=== PATIENT | male | born 1965 | race Caucasian/White ===

== ENCOUNTER 2024-02-24 03:45 | Emergency (ER) | payer OTHER, SELFPAY ==
[2024-02-24] VITALS (7 sets, daily range): BP systolic 117–153; BP diastolic 90–117; BMI 38.1
--- NOTE | 2024-02-24 04:02 | ED.GENMED ---
History of Present Illness
<YNES Jha - Last Filed: 02/24/24 07:04>
General
Chief Complaint: Heart Rate Problem
Source: patient
Exam Limitations: none
Time Seen by Provider: 02/24/24 04:02
Nursing documentation reviewed up to this point in time: agreed with
History of Present Illness
History of Present Illness:
58-year-old male presents for evaluation of a heart rate problem. Pt reports that he has been experiencing intermittent episodes of increased heart rate, palpitations, and chest tightness over the last three weeks. Pt endorses 4-5 episodes of
self-resolving increased heart rate and palpitations over this three week period. Most recent episode occurred at approximately 23:00 on 02/22 and awoke pt from sleep. Pt states this episode lasted roughly 10 minutes, which was a longer period of
time compared to past episodes. He endorses associated numbness/tingling in his right fourth and fifth digits, which had not occurred during past episodes and prompted ED arrival. Pt denies correlation with exertion, but states these episodes tend
to occur in the evening. Pt with transient runs of atrial flutter while in the ED this morning. Pt reports daily ETOH use, and adds that he just returned from a week-long vacation to [place] where he endorses increased ETOH use. No sx reported while
in [place]. No tobacco or illicit drug use. He currently endorses mild chest 'pressure' but denies SOB, N/V, cough, dizziness, syncope, abdominal pain, anxiety, and recent URI.
Review of Systems
<YNES Jha - Last Filed: 02/24/24 07:04>
Review of Systems
Allergies reviewed?: Yes
Constitutional: Reports no symptoms
EENT: Reports no symptoms
Respiratory: Reports no symptoms
Cardiac: Reports diaphoresis (during episodes of increased heart rate ) and other (chest 'pressure')
ABD/GI: Reports no symptoms
: Reports no symptoms
Musculoskeletal: Reports no symptoms
Skin: Reports no symptoms
Neurological: Reports other (intermittent tingling in right 4th and 5th digits )
Endocrine: Reports no symptoms
Hematologic/Lymphatic: Reports no symptoms
Psychiatric: Reports no symptoms
Phy Exam
<YNES Jha - Last Filed: 02/24/24 07:04>
General Physical Exam
General Presentation: well appearing
General age: appears stated age
General Skin: warm
General Habitus: normal
General Mental: alert
General Hydration: appears well hydrated
Cardiovascular Exam
Cardiovascular Exam: regular rate/rhythm, no edema, no murmur and normal peripheral pulses
Pulmonary Exam
Pulmonary Exam: lungs clear, no respiratory distress, no crackles and no wheezing
Neurological Exam
Neurological Exam: alert and oriented x3
Skin Exam
Skin Exam: warm/dry
Scores
<YNES Jha - Last Filed: 02/24/24 07:04>
[id number] Score for Afib Stroke Risk
Age in Years (65=0, 65-74=1, >/=75=2): <65
Sex (Female=+1): Male
Congestive Heart Failure History (Yes=+1): No
Hypertension History (Yes=+1): Yes
Stroke/TIA/Thromboembolism History (Yes=+2): No
Vascular Disease History (Yes=+1): No
Diabetes Mellitus (Yes=+1): No
Score: 1
Anticoagulation Recommendations: Consider anticoagulation (as validated in nonvalvular fib)
<Michelle Kemp DO - Last Filed: 02/24/24 07:33>
[id number] Score for Afib Stroke Risk
Score: 1
Anticoagulation Recommendations: Consider anticoagulation (as validated in nonvalvular fib)
Course
<YNES Jha - Last Filed: 02/24/24 07:04>
Orders/Labs/Results
Orders:
Orders
02/24/24
Electrocardiogram (*1) Stat
Reason for Study: Chest Pain
02/24/24 03:52
Electrocardiogram (*1) Urgent
Reason for Study: Palpitations
EKG- Treatment ONCE
02/24/24 04:10
Cardiac Monitoring- Treatment ONCE
02/24/24 04:33
Metoprolol [Lopressor] 5 mg IV NOW STA
02/24/24 04:40
Complete Blood Count/With Diff Urgent
Comprehensive Metabolic Panel Urgent
Free T4 Urgent
TSH Reflex To Free T4 Urgent
Troponin I Urgent
02/24/24 05:05
0.9% Sodium Chloride 500 ml [Nss] 1,000 ml IV ONCE
02/24/24 06:03
Metoprolol [Lopressor] 5 mg IV NOW STA
02/24/24 06:32
Troponin I Urgent
Abnormal Lab Results
02/24/24
04:40
RBC 4.55 L 10^6/uL
(4.70-6.10)
MCH 34.1 H pg
(27.0-31.0)
Abs Immat Gran (auto) 0.1 H 10^3/uL
(0-0.05)
Absolute Lymphs (auto) 1.1 L 10^3/uL
(1.2-3.4)
Immature Gran % 1.8 H %
(0-0.5)
Lymphocytes % 17.6 L %
(20.5-51.1)
Sodium 134 L mmol/L
(135-145)
Glucose 120 H mg/dl
(70-99)
ALT 57 H U/L
(0-50)
TSH (Reflex) 9.22 H uIU/ml
(0.47-4.68)
02/24/24 04:40
02/24/24 04:40
Vital Signs
Initial and Last Documented VS:
Initial Vital Signs
Temp Pulse Resp BP Pulse Ox
98.3 F 150 18 153/117 97
02/24/24 03:49 02/24/24 03:49 02/24/24 03:49 02/24/24 03:49 02/24/24 03:49
Last Documented Vital Signs
Temp Pulse Resp BP Pulse Ox
98.3 F 76 19 120/97 97
02/24/24 03:49 02/24/24 06:30 02/24/24 06:30 02/24/24 06:30 02/24/24 06:30
<Michelle Kemp, DO - Last Filed: 02/24/24 07:33>
Orders/Labs/Results
Orders:
Orders
02/24/24
Electrocardiogram (*1) Stat
Reason for Study: Chest Pain
02/24/24 03:52
Electrocardiogram (*1) Urgent
Reason for Study: Palpitations
EKG- Treatment ONCE
02/24/24 04:10
Cardiac Monitoring- Treatment ONCE
02/24/24 04:33
Metoprolol [Lopressor] 5 mg IV NOW STA
02/24/24 04:40
Complete Blood Count/With Diff Urgent
Comprehensive Metabolic Panel Urgent
Free T4 Urgent
TSH Reflex To Free T4 Urgent
Troponin I Urgent
02/24/24 05:05
0.9% Sodium Chloride 500 ml [Nss] 1,000 ml IV ONCE
02/24/24 06:03
Metoprolol [Lopressor] 5 mg IV NOW STA
02/24/24 06:32
Troponin I Urgent
Abnormal Lab Results
02/24/24
04:40
RBC 4.55 L 10^6/uL
(4.70-6.10)
MCH 34.1 H pg
(27.0-31.0)
Abs Immat Gran (auto) 0.1 H 10^3/uL
(0-0.05)
Absolute Lymphs (auto) 1.1 L 10^3/uL
(1.2-3.4)
Immature Gran % 1.8 H %
(0-0.5)
Lymphocytes % 17.6 L %
(20.5-51.1)
Sodium 134 L mmol/L
(135-145)
Glucose 120 H mg/dl
(70-99)
ALT 57 H U/L
(0-50)
TSH (Reflex) 9.22 H uIU/ml
(0.47-4.68)
02/24/24 04:40
02/24/24 04:40
Vital Signs
Initial and Last Documented VS:
Initial Vital Signs
Temp Pulse Resp BP Pulse Ox
98.3 F 150 18 153/117 97
02/24/24 03:49 02/24/24 03:49 02/24/24 03:49 02/24/24 03:49 02/24/24 03:49
Last Documented Vital Signs
Temp Pulse Resp BP Pulse Ox
98.3 F 76 19 120/97 97
02/24/24 03:49 02/24/24 06:30 02/24/24 06:30 02/24/24 06:30 02/24/24 06:30
<YNES Jha - Last Filed: 02/24/24 07:04>
MDM/Problems Addressed
Differential Diagnosis Includes:
Atrial flutter, PVC, SVT, Atrial fibrillation.
<YNES Jha - Last Filed: 02/24/24 07:04>
*Critical Care Note
Total Time (30-74mins, 75-104mins- exclusive of procedures): Not Applicable
<Michelle Kemp DO - Last Filed: 02/24/24 07:33>
*Pulse Oximetry
Patient hypoxic: no
*EKG
Interpreted by ED Provider?: Yes
Interpretation: normal
Comparison EKG: no comparison EKG present
Rate: normal
Rhythm: sinus and PVC's
[place]: normal axis
Interval: normal interval
QRS Pattern: normal QRS
Ischemia: no ischemia
*[employer] Interpretation
Rate: tachycardiac
Interpretation: abnormal
Rhythm: atrial flutter
*Critical Care Note
Total Time (30-74mins, 75-104mins- exclusive of procedures): Not Applicable
ED Attending Note
<YNES Jha - Last Filed: 02/24/24 07:04>
-
Portions of this chart may have been created with voice recognition software.� Occasional wrong word or��sound alike� substitutions may have occurred due to the inherent limitations of voice recognition software.
<Michelle Kemp DO - Last Filed: 02/24/24 07:33>
ED Attending Note
Patient seen and examined by attending physician: Yes
I performed the substantive portion of visit, reviewed & personally made and approve the management plan that is documented in note by myself or CECILY.: Yes
ED Attending Note:
This is a 58-year-old gentleman who has history of hypertension chronically maintained on lisinopril/HCTZ 05/06.5. He also has history of hyperlipidemia maintained on niacin. He complains of several week history of intermittent palpitations feeling
that his heart is racing that generally lasts a minute or 2 but tonight palpitations persisted lasting at least 10 minutes and accompanied with some left upper chest tightness as well as some tingling of his right ring and small digit prompting ED
visit. He has had no shortness of breath, no dizziness nor lightheadedness, no neck nor back pain, no leg pain or swelling.
He and his recently returned from a trip to [place], returned home at 11 PM tonight. No palpitations during his weeklong stay in [place].
He does not smoke, denies drug use but does admit to daily alcohol consumption.
Heart rate noted to be 150 during nurse triage but initial EKG shows normal sinus rhythm with unifocal PVC. Patient admits that palpitations are generally short-lived lasting 1 to 5 minutes.
He was evaluated by his PCP several weeks ago for palpitations and has an initial appointment with cardiology, DAKOTA Laurent scheduled on March 12.
GENERAL: 58-year-old obese gentleman appears his stated age, awake and alert, pleasant, appears in no acute distress. is accompanying.
EYE: pupils equal and round. anicteric
NECK: Supple, nontender, no meningismus, no significant adenopathy.
ENT: , oral mucosa is moist. No rhinorrhea.
CARDIAC: Regular rate and rhythm. no murmur.
LUNGS: Clear breath sounds bilaterally, no acute respiratory distress, no wheezes/rales/rhonchi
ABDOMEN: Rotund, soft, nondistended, without focal tenderness, no r/g, no cvat. normoactive BS.
NEUROLOGICAL: Alert and oriented x3, no focal neuro deficits. Gait is steady.
SKIN: Warm and dry, moderately tanned sun exposed skin, skin intact. No rash.
MUSCULOSKELETAL: No C/C/E. peripheral pulses are full and equal b/l. No palpable tenderness.
PSYCH: Normal and appropriate interaction.
Patient presents with several week history of intermittent palpitations. Initial EKG shows normal sinus rhythm at 84 with 1 PVC. During initial evaluation however rhythm changed to atrial flutter with 2-1 block with heart rate of 152. A flutter
with 2-1 block associated with palpitations but currently chest pain-free. A flutter spontaneously converted back to normal sinus rhythm within 2 minutes.
During episode of atrial flutter he remains hemodynamically stable.
He does admit to daily alcohol consumption, concern for 'holiday heart syndrome'
Concern for dehydration, thyroid disorder, less likely anemia.
Due to complaints of chest pressure, right hand tingling with prolonged episode of palpitations tonight, concern for ACS.
Although recently returned from a trip to [place], palpitations began prior to air travel. He has had no associated shortness of breath, no dyspnea on exertion thus PE is less likely.
Will give an IV dose of Lopressor, IV fluids. Labs are pending.
02/24/2024 0730 AM
Patient continues with intermittent episodes of atrial flutter generally lasting a minute with prompt conversion back to normal sinus rhythm. Atrial flutter episodes now with controlled ventricular response in the 90s. Patient is much less
symptomatic, admits to rare palpitations but no further chest discomfort and continues to deny shortness of breath.
He remains hemodynamically stable.
[id number] score of 1; no indication for anticoagulant.
Labs are unremarkable. Minimally elevated TSH with normal free T4. Troponin is negative x 2.
Will discharge to home with prescription for metoprolol tartrate 25 mg to be taken twice daily. While taking metoprolol patient has been instructed to hold his lisinopril.
Recommend he significantly curb his alcohol consumption and other than this recommend he stay well-hydrated on a daily basis.
Follow-up with cardiology as already planned.
Return precautions discussed.
Discharge Plan
Departure
Patient Disposition: Home (Routine Discharge)
Date of Disposition: 02/24/24
Time of Disposition: 07:27
Patient with high blood pressure during this ER visit?: No
Condition: Good
Discharge Problem:
Atrial flutter, paroxysmal
Instructions: Atrial Fibrillation and Atrial Flutter ED
Prescriptions:
New
metoprolol tartrate 25 mg tablet
25 mg PO BID Qty: 60 0RF
Referrals:
Wilberto Segura MD [Family Provider] -
Iglesia Laurent MD [Active] - Keep scheduled appt
Activity Restrictions/Additional Instructions:
Stay well-hydrated on a daily basis.
Curb your alcohol consumption.
You have been prescribed metoprolol 25 mg to be taken twice daily. While taking metoprolol I want you to hold your lisinopril.
Follow-up with cardiology as scheduled.
If palpitations worsen, persist especially if accompanied with persistent chest pain, shortness of breath, lightheadedness, dizziness prompt return to the ED for further evaluation.
Interventions
Interventions:
*Risk Screen - Suicide Last Done: 02/24/24 03:49
*General Assessment Last Done: 02/24/24 04:10
*Neglect/Abuse Screening Last Done: 02/24/24 03:49
ED- Fall Risk Assessment Last Done: 02/24/24 04:10
*ED COVID-19 Vaccine History Last Done: 02/24/24 04:10
ED- Cardiac Assessment Last Done: 02/24/24 04:10
ED- Pulmonary Assessment Last Done: 02/24/24 04:10
Discharge Date and Time
Print Language: CITIZEN OF [place]
[2024-02-24] MEDS: LOPRESSOR 5 MG IV ×2 (04:54→06:32)
[2024-02-24] MEDS: NSS 1000 IV (05:06)
[2024-02-24 05:20] LABS: ALT (SGPT) 57 U/L (0-50); AST (SGOT) 57 U/L (17-59); Albumin 4.3 g/dl (3.5-5.0); Alkaline Phosphatase 81 U/L (38-126); Blood Urea Nitrogen 18 mg/dl (9-20); Calcium 9.2 mg/dl (8.4-10.2); Carbon Dioxide 25 mmol/L (22-30); Chloride 100 mmol/L (98-107); Estimated Creatinine Clearance > 125 ml/min; Glucose 120 mg/dl (70-99); Potassium 3.9 mmol/L (3.5-5.1); Sodium 134 mmol/L (135-145); Total Bilirubin 1.2 mg/dl (0.2-1.3); eGFR > 60.00
[2024-02-24 05:28] LABS: % Basophils 0.6 % (0-2); % Eosinophils 1.6 % (0-6); % Immature Granulocytes 1.8 % (0-0.5); % Lymphocytes 17.6 % (20.5-51.1); % Monocytes 5.9 % (1.7-9.3); % Neutrophils 72.5 % (42.2-75.2); Absolute Eosinophils 0.1 10^3/uL (0-0.7); Absolute Immature Granulocytes 0.1 10^3/uL (0-0.05); Absolute Lymphocytes 1.1 10^3/uL (1.2-3.4); Absolute Monocytes 0.4 10^3/uL (0.1-0.6); Absolute Neutrophils 4.5 10^3/uL (1.4-6.5); Hematocrit 42.2 % (39.0-52.0); Hemoglobin 15.5 g/dL (13.0-18.0); Mean Corp Hgb Conc. 36.7 g/dL (33.0-37.0); Mean Corpuscular Hgb 34.1 pg (27.0-31.0); Mean Corpuscular Volume 92.7 fL (80.0-94.0); Mean Platelet Volume 10.1 fL (7.4-10.4); Nucleated Red Blood Cells % 0 % (-); Platelet Count 190 10^3/uL (130-400); Red Blood Cell Count 4.55 10^6/uL (4.70-6.10); Red Cell Dist. Width 13.2 % (11.5-14.5); White Blood Cell Count 6.3 10^3/uL (4.8-10.8)
[2024-02-24 05:33] LABS: Troponin I 0.013 ng/ml
[2024-02-24 05:52] LABS: TSH Reflex To Free T4 9.22 uIU/ml (0.47-4.68)
[2024-02-24 06:21] LABS: Free T4 0.82 ng/dl (0.78-2.19)
[2024-02-24 07:16] LABS: Troponin I 0.013 ng/ml
== END 2024-02-24 07:54 | disposition home or self-care (01) ==
LOC: EMR 03:45
PROVIDERS: EMERGENCY PHYSICIAN Emergency Medicine; FAMILY PHYSICIAN Family Medicine
DX: I48.92 Unspecified atrial flutter (principal); R00.2 Palpitations; R07.89 Other chest pain; R20.2 Paresthesia of skin; R20.0 Anesthesia of skin; E66.9 Obesity, unspecified; Z68.38 Body mass index [BMI] 38.0-38.9, adult; I10 Essential (primary) hypertension; E78.5 Hyperlipidemia, unspecified; F10.90 Alcohol use, unspecified, uncomplicated; Z79.899 Other long term (current) drug therapy
CPT/HCPCS: 99284; 96374; 96361 ×2; 96376; 80053; 84439; 84443; 84484; 85025; 93005

== ENCOUNTER → 2024-03-16 16:00 | Outpatient (REF) | payer OTHER, SELFPAY ==
--- NOTE | 2024-03-16 17:04 | CARDSERVLU ---
Echocardiogram with [facility] completed after protocol screening completed. Allergies verified.
Patent IV site: __RAC___
IV site flushed with 0.9% NaCl pre and post administration.
Diluted bolus method utilized to enhance visualization of ventricular agee.
Total volume given: __3__ mL
Patient tolerated all procedures well without complications.
== END ==
LOC: RCS 16:00
PROVIDERS: ATTENDING PHYSICIAN Internal Medicine Cardiovascular Disease; FAMILY PHYSICIAN Family Medicine
DX: I48.92 Unspecified atrial flutter (principal); I49.3 Ventricular premature depolarization; I10 Essential (primary) hypertension
CPT/HCPCS: 93306; Q9950

== ENCOUNTER → 2024-03-19 10:58 | Outpatient (REF) | payer OTHER, SELFPAY | LOC: DHCBC/DCA 10:58 | PROVIDERS: ATTENDING PHYSICIAN Internal Medicine Cardiovascular Disease; FAMILY PHYSICIAN Family Medicine | DX: I48.92 Unspecified atrial flutter (principal); I49.3 Ventricular premature depolarization; E78.2 Mixed hyperlipidemia | CPT/HCPCS: 78452; 93017; A9500 ==

== ENCOUNTER → 2024-10-16 16:48 | Outpatient (REF) | payer SELFPAY | LOC: RAD 16:48 | PROVIDERS: ATTENDING PHYSICIAN Nurse Practitioner; FAMILY PHYSICIAN Internal Medicine | DX: E78.2 Mixed hyperlipidemia (principal); Z82.49 Family history of ischemic heart disease and other diseases of the circulatory system | CPT/HCPCS: 75571 ==